=== PATIENT | male | born 1995 | race Caucasian/White ===

== ENCOUNTER 2018-04-05 19:20 | Emergency (ER) | payer OTHER ==
[2018-04-05 19:27] VITALS: BP 131/87; PULSE 75; RESP 18; TEMP 97.8
--- NOTE | 2018-04-05 20:23 | XR ---
EXAMINATION TYPE: XR tibia fibula RT DATE OF EXAM: 04/05/2018 COMPARISON: NONE HISTORY: Laceration TECHNIQUE: 2 views FINDINGS: Tibia and fibula appear intact. I see no fracture nor dislocation. There is no sign of a fo reign body. IMPRESSION: Negative right tibia and fibula exam.
[2018-04-05] MEDS ORDERED: LIDOCAINE 1%-EPI 1:100,000 30 ML VIAL SQ ONE (20:33)
--- NOTE | 2018-04-05 20:39 | ED ---
Wound/Laceration HPI - General Chief Complaint: Wound/Laceration Stated Complaint: leg lac Time Seen by Provider: 04/05/18 19:29 Source: patient Mode of arrival: ambulatory Limitations: no limitations - History of Present Illness Initial Comments: This is a 22yo male with no PMH who presents today for cc of laceration to the right morrow x 2 hours ago. Pt stated that he was working on his snowmobile which consisted of a metal stand being beneath it. He accidentally ran the belt of the snowmobile without taking out the stand, when the stand caught him in the left anterior morrow causing a laceration. Pt immediately applied pressure however when the laceration continued to bleed after 1 hour he decided to present to the emergency department. Pt denies pain with ambulation, numbness, tingling, loss of sensation, use of anticoagulants. Remainder ROS (-). Pt VS stable. - Related Data Allergies Allergy/AdvReac Type Severity Reaction Status Date / Time No Known Allergies Allergy Verified 04/05/18 19:22 Review of Systems ROS Statement: Those systems with pertinent positive or pertinent negative responses have been documented in the HPI. ROS Other: All systems not noted in ROS Statement are negative. Constitutional: Denies: fever, chills Respiratory: Denies: cough, dyspnea, wheezes, hemoptysis Cardiovascular: Denies: chest pain, palpitations, dyspnea on exertion Gastrointestinal: Denies: abdominal pain, nausea, vomiting, diarrhea, constipation Genitourinary: Denies: urgency, dysuria Musculoskeletal: Denies: joint swelling, arthralgia, myalgia Skin: Reports: as per HPI (1.5 cm laceration to the left anterior morrow-actively bleeding). Denies: change in color Past Medical History Past Medical History: No Reported History History of Any Multi-Drug Resistant Organisms: None Reported Past Surgical History: No Surgical Hx Reported Past Psychological History: No Psychological Hx Reported Smoking Status: Never smoker Past Alcohol Use History: None Reported Past Drug Use History: None Reported General Exam - General Exam Comments Initial Comments: General: The patient is awake and alert, in no distress, and does not appear acutely ill. Eye: Pupils are equal, round and reactive to light, extra-ocular movements are intact. No nystagmus. There is normal conjunctiva bilaterally. No signs of icterus. Cardiovascular: There is a regular rate and rhythm. No murmur, rub or gallop is appreciated. Respiratory: Lungs are clear to auscultation, respirations are non-labored, breath sounds are equal. No wheezes, stridor, rales, or rhonchi. Musculoskeletal: Normal ROM at the knee and ankle b/l, no tenderness. Strength 5/5. Not foot drop. Sensation intact of the LE, no pallor. +2 DP pulses equal bilaterally 2+. Neurological: A&O x 3. CN II-XII intact, There are no obvious motor or sensory deficits. Coordination appears grossly intact. Speech is normal. Skin: Skin is warm and dry and no rashes. 1.5cm laceration to the right anterior morrow, actively bleeding. Bleeding stops when compressed below the laceration and continues when pressure is applied above- appears to be through vein of LE. No evidence of exposure of bone or tendon. No evidence of FB. Psychiatric: Cooperative, appropriate mood & affect, normal judgment. Limitations: no limitations Course Vital Signs 04/05/18 19:22 Temperature 97.8 F Pulse Rate 75 Respiratory 18 Rate Blood Pressure 131/87 O2 Sat by Pulse 98 Oximetry Procedures - Laceration Laceration #1 Consent Obtained: verbal consent Time Out Performed: Yes Indication: laceration Site: lower extremity (right morrow) Size (cm): 2 Description: linear, clean Depth: simple, single layer Anesthetic Used: lidocaine 1%, with epi Anesthesia Technique: local infiltration Amount (mls): 5 Pre-repair: wound explored, irrigated extensively, deep structures intact Type of Sutures: nylon Size of Sutures: 4-0 Number of Sutures: 2 Technique: simple, interrupted Patient Tolerated Procedure: well, no complications Medical Decision Making - Medical Decision Making 22 with cc of laceration to the right morrow that wont stop bleeding. It appeared as though the laceration had gone through a varicose vein because when pressure was applied below the laceration the bleeding stopped when applied above it continued. there was a visible vein below the laceration. XR obtained revealing no open fracture or radiolucent FB. Pressure was applied for an hour-hemostasis was obtained. Wound edges were approximated using 2, 4.0 sutures after extensive irrigation, exploration and anesthesized with 1% lido with epi. Pt tolerated procedure well. Sterile bandage applied. Tetanus within the last 5 years. Pt was instructed to avoid submerging sutures in water, swimming or bathing. pt was educated on signs and symptoms of infection and told to return to the ED if these arise. Pt was instructed to return to the ED for suture removal in 7-10days. Pt stated he understood plan and had no questions. Case discussed with Dr. Curiel who agreed with impression and plan. Pt d/c in stable condition. Disposition Clinical Impression: Laceration of right lower limb Disposition: HOME SELF-CARE Condition: Good Instructions: Care For Your Stitches (ED), Laceration (ED) Additional Instructions: Please use over the counter medication for pain as needed, as discussed. Please follow-up in the emergency department in the next 7-10 days for suture removal, no appointment necessary. Please return to emergency room if the symptoms increase or worsen or for any other concerns. Is patient prescribed a controlled substance at d/c from ED?: No Referrals: None,Stated [Primary Care Provider] - 1-2 days Time of Disposition: 21:03
== END 2018-04-05 21:21 | disposition home or self-care (01) ==
LOC: EC 19:20
DX: S81.811A Laceration without foreign body, right lower leg, initial encounter (principal); X58.XXXA Exposure to other specified factors, initial encounter
CPT/HCPCS: 12001; 99283